=== PATIENT | male | born 1990 | race Hispanic/Latino ===

== ENCOUNTER 2017-03-21 08:08 | Emergency (ER) | payer SELFPAY ==
[2017-03-21] MEDS ORDERED: ONDANSETRON ODT 4 MG TAB ONE (09:55)
== END 2017-03-21 10:11 | disposition home or self-care (01) ==
LOC: EDH 08:08
DX: K52.9 Noninfective gastroenteritis and colitis, unspecified (principal); J06.9 Acute upper respiratory infection, unspecified; I10 Essential (primary) hypertension; Z79.899 Other long term (current) drug therapy
CPT/HCPCS: 87804

== ENCOUNTER 2017-03-22 16:00 | Emergency (ER) | payer SELFPAY ==
[2017-03-22] MEDS ORDERED: KETOROLAC TROMETHAMINE 60 MG/2 ML VIAL ONE (16:26)
== END 2017-03-22 16:53 | disposition home or self-care (01) ==
LOC: EDH 16:00
DX: J01.90 Acute sinusitis, unspecified (principal); R50.9 Fever, unspecified; I10 Essential (primary) hypertension; Z79.899 Other long term (current) drug therapy
CPT/HCPCS: 96372; 99283; J1885

== ENCOUNTER 2018-08-28 13:10 | Emergency (ER) | payer OTHER ==
[2018-08-28 14:25] LABS: BASOPHILS % (AUTO) 0.5 % (0.0-5.0); EOSINOPHILS % (AUTO) 2.3 % (0.0-8.0); HEMATOCRIT 43.1 % (42-54); LYMPHOCYTES % (AUTO) 31.5 % (21.0-51.0); MEAN CORPUSCULAR HGB CONC 33.6 g/dL (32.0-36.0); MEAN CORPUSCULAR VOLUME 86.5 fL (79-99); MONOCYTES % (AUTO) 9.7 % (3.0-13.0); NUCLEATED RED BLOOD CELLS 0.1 % (0.0-0.19); PLATELET COUNT (AUTO) 232 K/uL (130-400); RED BLOOD CELL COUNT(AUTO) 4.98 MIL/uL (4.50-6.20); RED CELL DISTRIBUTION WIDTH 13.8 % (11.0-15.5); WHITE BLOOD COUNT (AUTO) 8.4 K/uL (4.8-10.8)
[2018-08-28 14:31] LABS: APPEARANCE,URINE Cloudy (CLEAR); BILIRUBIN,URINE Negative (NEGATIVE); COLOR,URINE Yellow (YELLOW); GLUCOSE, URINE (UA) >=1000 mg/dL (NEGATIVE); KETONES,URINE Trace mg/dL (NEGATIVE); LEUKOCYTE ESTERASE ,URINE Negative (NEGATIVE); NITRATE,URINE Negative (NEGATIVE); OCCULT BLOOD,URINE Negative (NEGATIVE); PH,URINE 6.5 (5.0-8.0); PROTEIN,URINE Negative (NEGATIVE)
[2018-08-28 14:44] LABS: AMORPHOUS SEDIMENT,UR Moderate /LPF (None Seen); BACTERIA,URINE Few /HPF (None Seen); RBC,URINE 0-1 /HPF (0-1); SQUAMOUS EPITHELIAL CELL,UR Rare /HPF (0-2); WBC,URINE 0-1 /HPF (0-1)
[2018-08-28 14:47] LABS: CREATININE 0.7 mg/dL (0.5-1.5); POTASSIUM 3.7 mmol/L (3.5-5.1)
[2018-08-28 14:51] LABS: ALBUMIN 3.6 g/dL (3.5-5.0); BILIRUBIN,DIRECT 0.1 mg/dL (0.0-0.3); BILIRUBIN,TOTAL 0.6 mg/dL (0.2-1.0); TOTAL PROTEIN, SERUM 7.1 g/dL (6.0-8.3)
== END 2018-08-28 15:39 | disposition home or self-care (01) ==
LOC: EDH 13:10
DX: S39.011A Strain of muscle, fascia and tendon of abdomen, initial encounter (principal); X58.XXXA Exposure to other specified factors, initial encounter; Y93.89 Activity, other specified; Y92.89 Other specified places as the place of occurrence of the external cause; Y99.8 Other external cause status
CPT/HCPCS: 36415; 74176; 80048; 80076; 81001; 83690; 85025

== ENCOUNTER 2019-04-30 10:33 | Emergency (ER) | payer OTHER | END 2019-04-30 12:20 | disposition home or self-care (01) | LOC: EDH 10:33 | DX: J06.9 Acute upper respiratory infection, unspecified (principal) | CPT/HCPCS: 87804 ==

== ENCOUNTER 2020-04-30 22:26 | Emergency (ER) | payer OTHER ==
[2020-04-30] MEDS ORDERED: ACETAMINOPHEN EXTRA STRENGTH 500 MG TABLET ONE (23:03)
[2020-04-30] MEDS ORDERED: ONDANSETRON HCL 4 MG/2 ML VIAL ONE (23:06)
[2020-04-30 23:13] LABS: BASOPHILS % (AUTO) 0.3 % (0.0-5.0); EOSINOPHILS % (AUTO) 3.7 % (0.0-8.0); HEMATOCRIT 42.3 % (42-54); LYMPHOCYTES % (AUTO) 45.5 % (21.0-51.0); MEAN CORPUSCULAR HEMOGLOBIN 27.8 pg (27.0-33.0); MEAN CORPUSCULAR HGB CONC 32.6 g/dL (32.0-36.0); MEAN CORPUSCULAR VOLUME 85.1 fL (79-99); MONOCYTES % (AUTO) 8.8 % (3.0-13.0); NEUTROPHILS % (AUTO) 41.1 % (40.0-77.0); PLATELET COUNT (AUTO) 240 K/uL (130-400); RED BLOOD CELL COUNT(AUTO) 4.97 MIL/uL (4.50-6.20); RED CELL DISTRIBUTION WIDTH 12.8 % (11.0-15.5); WHITE BLOOD COUNT (AUTO) 7.3 K/uL (4.8-10.8)
[2020-04-30 23:14] LABS: APPEARANCE,URINE Clear (CLEAR); BILIRUBIN,URINE Negative (NEGATIVE); COLOR,URINE Yellow (YELLOW); GLUCOSE, URINE (UA) Negative (NEGATIVE); KETONES,URINE Negative (NEGATIVE); LEUKOCYTE ESTERASE ,URINE Trace (NEGATIVE); NITRATE,URINE Negative (NEGATIVE); OCCULT BLOOD,URINE Negative (NEGATIVE); PH,URINE 5.5 (5.0-8.0); PROTEIN,URINE Negative (NEGATIVE)
[2020-04-30 23:27] LABS: BACTERIA,URINE Rare /HPF (None Seen); RBC,URINE None Seen /HPF (0-1); SQUAMOUS EPITHELIAL CELL,UR 0-2 /HPF (0-2); WBC,URINE 0-1 /HPF (0-1)
[2020-04-30 23:51] LABS: ALBUMIN 3.6 g/dL (3.5-5.0); BILIRUBIN,TOTAL 0.6 mg/dL (0.2-1.0); CREATININE 0.7 mg/dL (0.5-1.5); POTASSIUM 3.8 mmol/L (3.5-5.1); TOTAL PROTEIN, SERUM 7.2 g/dL (6.0-8.3)
[2020-05-01] MEDS ORDERED: KETOROLAC TROMETHAMINE 30MG/ML ONE (00:16)
[2020-05-01] MEDS ORDERED: METOCLOPRAMIDE 10 MG/2 ML VIAL ONE (00:16)
[2020-05-01] MEDS ORDERED: ORPHENADRINE CITRATE 30 MG/ML ML ONE (00:16)
== END 2020-05-01 00:52 | disposition home or self-care (01) ==
LOC: EDH 22:26
DX: E86.0 Dehydration (principal); R51.9 Headache, unspecified; M62.830 Muscle spasm of back
CPT/HCPCS: 36415; 80053; 81001; 83690; 85025; 96361; 96374; 96375; 99284; J1885; J2360; J2405; J2765

== ENCOUNTER 2020-09-26 19:28 | Emergency (ER) | payer OTHER ==
[~2020-09-26] VITALS: Ht 177.8 cm; Wt 136.1 kg
[2020-09-26 22:04] VITALS: BP 137/80
== END 2020-09-26 22:11 | disposition home or self-care (01) ==
LOC: EDH 19:28
DX: J06.9 Acute upper respiratory infection, unspecified (principal); Z20.822 Contact with and (suspected) exposure to COVID-19; E11.9 Type 2 diabetes mellitus without complications
CPT/HCPCS: 71045; 87635; 87804 ×2; 99284; C9803

== ENCOUNTER 2021-01-28 21:54 | Emergency (ER) | payer BC, OTHER ==
[~2021-01-28] VITALS: Ht 177.8 cm; Wt 136.1 kg
[2021-01-28] MEDS ORDERED: 0.9%NACL 1000ML 1,000 ML IV ONE (23:00)
[2021-01-28] MEDS ORDERED: CYCLOBENZAPRINE HCL 10 MG TABLET PO ONE (23:00)
[2021-01-28] MEDS ORDERED: KETOROLAC 30MG VIAL (30MG/ML) IV ONE (23:00)
[2021-01-28] MEDS ORDERED: PROMETHAZINE HCL 25 MG/ML 1ML AMPULE IM ONE (23:00)
[2021-01-28 23:09] LABS: BASOPHILS % (AUTO) 0.4 % (0.0-5.0); EOSINOPHILS % (AUTO) 4.1 % (0.0-8.0); HEMATOCRIT 44.8 % (42-54); MEAN CORPUSCULAR HEMOGLOBIN 27.9 pg (27.0-33.0); MEAN CORPUSCULAR VOLUME 84.4 fL (79-99); MONOCYTES % (AUTO) 8.5 % (3.0-13.0); NEUTROPHILS % (AUTO) 46.7 % (40.0-77.0); PLATELET COUNT (AUTO) 256 K/uL (130-400); RED BLOOD CELL COUNT(AUTO) 5.31 MIL/uL (4.50-6.20); RED CELL DISTRIBUTION WIDTH 12.5 % (11.0-15.5); WHITE BLOOD COUNT (AUTO) 8.9 K/uL (4.8-10.8)
[2021-01-28 23:17] LABS: POTASSIUM 3.8 mmol/L (3.5-5.1)
[2021-01-28 23:22] LABS: BILIRUBIN,TOTAL 0.8 mg/dL (0.2-1.0); TOTAL PROTEIN, SERUM 7.6 g/dL (6.0-8.3)
[2021-01-28] MEDS ORDERED: CYCL10TA16 PO (23:31)
[2021-01-28] MEDS ORDERED: NAPR-1180 PO (23:31)
[2021-01-28 23:37] LABS: CREATININE 0.9 mg/dL (0.5-1.5)
[2021-01-29 00:07] VITALS: BP 118/58
== END 2021-01-29 00:48 | disposition home or self-care (01) ==
LOC: EDH 21:54
DX: G43.909 Migraine, unspecified, not intractable, without status migrainosus (principal); E11.9 Type 2 diabetes mellitus without complications; E78.00 Pure hypercholesterolemia, unspecified; E66.9 Obesity, unspecified; Z68.41 Body mass index [BMI] 40.0-44.9, adult; Z79.1 Long term (current) use of non-steroidal anti-inflammatories (NSAID)
CPT/HCPCS: 36415; 70450; 80053; 85025; 96361; 96372; 96374; 99284; J1885; J2550; J7030

== ENCOUNTER 2021-06-12 12:49 | Emergency (ER) | payer BC, OTHER ==
[~2021-06-12] VITALS: Ht 175.3 cm; Wt 139.7 kg
[~2021-06-12 12:49] MED LIST: CYCL10TA16 PO; NAPR-1180 PO
[2021-06-12 13:09] LABS: BASOPHILS % (AUTO) 0.3 % (0.0-5.0); EOSINOPHILS % (AUTO) 3.6 % (0.0-8.0); HEMATOCRIT 43.2 % (42-54); LYMPHOCYTES % (AUTO) 31.9 % (21.0-51.0); MEAN CORPUSCULAR HEMOGLOBIN 27.3 pg (27.0-33.0); MEAN CORPUSCULAR HGB CONC 32.6 g/dL (32.0-36.0); MEAN CORPUSCULAR VOLUME 83.6 fL (79-99); MONOCYTES % (AUTO) 7.2 % (3.0-13.0); NEUTROPHILS % (AUTO) 56.6 % (40.0-77.0); PLATELET COUNT (AUTO) 246 K/uL (130-400); RED BLOOD CELL COUNT(AUTO) 5.17 MIL/uL (4.50-6.20); RED CELL DISTRIBUTION WIDTH 12.6 % (11.0-15.5); WHITE BLOOD COUNT (AUTO) 7.3 K/uL (4.8-10.8)
[2021-06-12 13:21] LABS: CREATININE 0.8 mg/dL (0.5-1.5); POTASSIUM 4.3 mmol/L (3.5-5.1)
[2021-06-12 13:26] LABS: APPEARANCE,URINE Clear (CLEAR); BILIRUBIN,URINE Negative (NEGATIVE); COLOR,URINE Yellow (YELLOW); GLUCOSE, URINE (UA) >=1000 mg/dL (NEGATIVE); KETONES,URINE Trace mg/dL (NEGATIVE); LEUKOCYTE ESTERASE ,URINE Negative (NEGATIVE); NITRATE,URINE Negative (NEGATIVE); OCCULT BLOOD,URINE Negative (NEGATIVE); PH,URINE 5.5 (5.0-8.0); PROTEIN,URINE Negative (NEGATIVE)
[2021-06-12 13:26] LABS: ALBUMIN 3.7 g/dL (3.5-5.0); BILIRUBIN,TOTAL 0.9 mg/dL (0.2-1.0); TOTAL PROTEIN, SERUM 7.1 g/dL (6.0-8.3)
[2021-06-12 13:32] LABS: AMPHET/METH SCREEN,URINE NEGATIVE (NEGATIVE); BARBITURATE SCREEN, URINE NEGATIVE (NEGATIVE); BENZODIAZEPINES SCREEN,URINE NEGATIVE (NEGATIVE); CANNABINOID SCREEN,URINE NEGATIVE (NEGATIVE); COCAINE SCREEN,URINE NEGATIVE (NEGATIVE); OPIATE SCREEN,URINE NEGATIVE (NEGATIVE); PHENCYCLIDINE SCREEN,URINE NEGATIVE (NEGATIVE)
[2021-06-12 13:44] LABS: BACTERIA,URINE Rare /HPF (None Seen); RBC,URINE 0-1 /HPF (0-1); WBC,URINE 0-1 /HPF (0-1)
[2021-06-12] MEDS ORDERED: LORAZEPAM 2 MG/ML 1 ML VIAL IVP ONE (14:00)
[2021-06-12 15:51] VITALS: BP 114/69
== END 2021-06-12 15:58 | disposition home or self-care (01) ==
LOC: EDH 12:49
DX: R07.89 Other chest pain (principal); R09.81 Nasal congestion; R05.9 Cough, unspecified; E11.9 Type 2 diabetes mellitus without complications; I10 Essential (primary) hypertension; G43.909 Migraine, unspecified, not intractable, without status migrainosus; E66.9 Obesity, unspecified; Z68.41 Body mass index [BMI] 40.0-44.9, adult; Z79.1 Long term (current) use of non-steroidal anti-inflammatories (NSAID)
CPT/HCPCS: 36415; 71045; 80053; 80305; 81001; 84484 ×2; 85025; 93005; 96374; 99285; J2060

== ENCOUNTER 2021-11-19 21:30 | Emergency (ER) | payer OTHER ==
[~2021-11-19] VITALS: Ht 177.8 cm; Wt 134.7 kg
[2021-11-19 22:06] LABS: BASOPHILS % (AUTO) 0.3 % (0.0-5.0); EOSINOPHILS % (AUTO) 0.7 % (0.0-8.0); HEMATOCRIT 43.4 % (42-54); LYMPHOCYTES % (AUTO) 27.7 % (21.0-51.0); MEAN CORPUSCULAR HEMOGLOBIN 28.3 pg (27.0-33.0); MEAN CORPUSCULAR HGB CONC 33.9 g/dL (32.0-36.0); MEAN CORPUSCULAR VOLUME 83.6 fL (79-99); MONOCYTES % (AUTO) 10.3 % (3.0-13.0); NEUTROPHILS % (AUTO) 60.1 % (40.0-77.0); PLATELET COUNT (AUTO) 230 K/uL (130-400); RED BLOOD CELL COUNT(AUTO) 5.19 MIL/uL (4.50-6.20); WHITE BLOOD COUNT (AUTO) 10.7 K/uL (4.8-10.8)
[2021-11-19 22:16] LABS: POTASSIUM 3.8 mmol/L (3.5-5.1)
[2021-11-19 22:21] LABS: ALBUMIN 3.3 g/dL (3.5-5.0); TOTAL PROTEIN, SERUM 6.5 g/dL (6.0-8.3)
[2021-11-19] MEDS: KETOROLAC 15MG/ML VIAL (15MG/ML) ONE (23:28)
[2021-11-19] MEDS ORDERED: OSEL75 PO (23:39)
[2021-11-19] MEDS ORDERED: IBUP-2070 PO (23:39)
[2021-11-19] MEDS ORDERED: D-ME118S47 PO (23:39)
[2021-11-19] MEDS: KETOROLAC 15MG/ML VIAL (15MG/ML) IV ONE (23:41)
[2021-11-19 23:43] VITALS: BP 121/65
== END 2021-11-19 23:55 | disposition home or self-care (01) ==
LOC: EDH 21:30
DX: J10.1 Influenza due to other identified influenza virus with other respiratory manifestations (principal); M94.0 Chondrocostal junction syndrome [Tietze]; E11.9 Type 2 diabetes mellitus without complications; I10 Essential (primary) hypertension; G43.909 Migraine, unspecified, not intractable, without status migrainosus; Z79.899 Other long term (current) drug therapy
CPT/HCPCS: 99285; 96374; 71045; 84484; 80053; 85025; 87804 ×2; 36415; 93005; J1885

== ENCOUNTER 2022-03-24 23:04 | Emergency (ER) | payer BC, OTHER ==
[~2022-03-24] VITALS: Ht 177.8 cm; Wt 138.8 kg
[~2022-03-24 23:04] MED LIST changes: +D-ME118S47 PO; +IBUP-2070 PO; +OSEL75 PO
[2022-03-25 00:08] LABS: BASOPHILS % (AUTO) 0.5 % (0.0-5.0); EOSINOPHILS % (AUTO) 2.3 % (0.0-8.0); HEMATOCRIT 40.9 % (42-54); LYMPHOCYTES % (AUTO) 36.3 % (21.0-51.0); MEAN CORPUSCULAR HEMOGLOBIN 28.1 pg (27.0-33.0); MEAN CORPUSCULAR HGB CONC 33.5 g/dL (32.0-36.0); MONOCYTES % (AUTO) 8.7 % (3.0-13.0); NEUTROPHILS % (AUTO) 51.7 % (40.0-77.0); PLATELET COUNT (AUTO) 276 K/uL (130-400); RED BLOOD CELL COUNT(AUTO) 4.87 MIL/uL (4.50-6.20); RED CELL DISTRIBUTION WIDTH 12.2 % (11.0-15.5); WHITE BLOOD COUNT (AUTO) 9.7 K/uL (4.8-10.8)
[2022-03-25 00:09] LABS: CREATININE 0.7 mg/dL (0.5-1.5); POTASSIUM 3.6 mmol/L (3.5-5.1)
[2022-03-25 00:15] LABS: ALBUMIN 3.6 g/dL (3.5-5.0); TOTAL PROTEIN, SERUM 7.1 g/dL (6.0-8.3)
[2022-03-25 00:18] LABS: APPEARANCE,URINE CLEAR (CLEAR); BILIRUBIN,URINE NEGATIVE (NEGATIVE); COLOR,URINE LIGHT-YELLOW (YELLOW); GLUCOSE, URINE (UA) NEGATIVE (NEGATIVE); KETONES,URINE NEGATIVE (NEGATIVE); LEUKOCYTE ESTERASE ,URINE NEGATIVE Leu/uL (NEGATIVE); NITRATE,URINE NEGATIVE (NEGATIVE); OCCULT BLOOD,URINE NEGATIVE (NEGATIVE); PROTEIN,URINE NEGATIVE (NEGATIVE); UROBILINOGEN,URINE 0.2 mg/dL (0.2-1.0)
[2022-03-25] MEDS ORDERED: MAG/ALUM/SIMETH 30 ML UDCUP PO ONE (00:30)
[2022-03-25] MEDS ORDERED: LIDOCAINE HCL 2% VISCOUS 15 ML UDCUP PO ONE (00:30)
[2022-03-25 00:31] LABS: MUCUS,URINE RARE LPF (None Seen); RBC,URINE 0-1 /HPF (0-1); SQUAMOUS EPITHELIAL CELL,UR FEW /HPF (0-2); WBC,URINE 0-1 /HPF (0-1)
[2022-03-25 00:42] LABS: INR 0.93 (0.85-1.15)
[2022-03-25] MEDS ORDERED: IOHEXOL 350 MG/ML 100ML INFUS..BTL IV ONE (03:37)
[2022-03-25] MEDS ORDERED: IBUP-1493 PO (04:28)
[2022-03-25] MEDS ORDERED: OMEP40CA21 PO (04:28)
[2022-03-25 04:45] VITALS: BP 125/55
== END 2022-03-25 05:18 | disposition home or self-care (01) ==
LOC: EDH 23:04
DX: R10.12 Left upper quadrant pain (principal); E11.9 Type 2 diabetes mellitus without complications; E66.9 Obesity, unspecified; I10 Essential (primary) hypertension; G43.909 Migraine, unspecified, not intractable, without status migrainosus; Z79.899 Other long term (current) drug therapy
CPT/HCPCS: 99284; 80053; 83690; 85025; 85610; 85730; 81001; 36415; 81003; 74177; 76705; Q9967

== ENCOUNTER 2022-09-19 00:10 | Emergency (ER) | payer BC ==
[~2022-09-19] VITALS: Ht 177.8 cm; Wt 136.1 kg
[~2022-09-19 00:10] MED LIST changes: -CYCL10TA16 PO; -D-ME118S47 PO; +IBUP-1493 PO; -IBUP-2070 PO; -NAPR-1180 PO; +OMEP40CA21 PO; -OSEL75 PO
[2022-09-19 02:16] LABS: BASOPHILS # (AUTO) 0.06 K/uL (0.00-0.20); BASOPHILS % (AUTO) 0.7 % (0.0-5.0); EOSINOPHILS # (AUTO) 0.35 K/uL (0.00-0.70); EOSINOPHILS % (AUTO) 4.1 % (0.0-8.0); HEMATOCRIT 40.7 % (42-54); IMMATURE GRANULOCYTE ABSOLUTE 0.04 K/uL (0-1); LYMPHOCYTES # (AUTO) 2.9 K/uL (1.0-4.8); LYMPHOCYTES % (AUTO) 34.5 % (21.0-51.0); MEAN CORPUSCULAR HEMOGLOBIN 27.7 pg (27.0-33.0); MEAN CORPUSCULAR HGB CONC 34.2 g/dL (32.0-36.0); MEAN CORPUSCULAR VOLUME 81.2 fL (79-99); MONOCYTES # (AUTO) 0.9 K/uL (0.1-1.0); MONOCYTES % (AUTO) 10.1 % (3.0-13.0); NEUTROPHILS # (AUTO) 4.3 K/uL (1.8-7.7); NEUTROPHILS % (AUTO) 50.1 % (40.0-77.0); PLATELET COUNT (AUTO) 298 K/uL (130-400); RED BLOOD CELL COUNT(AUTO) 5.01 MIL/uL (4.50-6.20); RED CELL DISTRIBUTION WIDTH 12.4 % (11.0-15.5); WHITE BLOOD COUNT (AUTO) 8.5 K/uL (4.8-10.8)
[2022-09-19 02:17] LABS: APPEARANCE,URINE CLEAR (CLEAR); BILIRUBIN,URINE NEGATIVE (NEGATIVE); COLOR,URINE YELLOW (YELLOW); GLUCOSE, URINE (UA) >=1000 mg/dL (NEGATIVE); KETONES,URINE 5 mg/dL (NEGATIVE); LEUKOCYTE ESTERASE ,URINE 25 Leu/uL (NEGATIVE); NITRATE,URINE NEGATIVE (NEGATIVE); OCCULT BLOOD,URINE NEGATIVE (NEGATIVE); PROTEIN,URINE 10 mg/dL (NEGATIVE)
[2022-09-19 02:19] LABS: ADD UA MICROSCOPIC YES
[2022-09-19 02:21] LABS: CREATININE 0.8 mg/dL (0.5-1.5)
[2022-09-19 02:25] LABS: ALBUMIN 3.2 g/dL (3.5-5.0); BILIRUBIN,TOTAL 0.5 mg/dL (0.2-1.0); TOTAL PROTEIN, SERUM 7.2 g/dL (6.0-8.3)
[2022-09-19 02:28] LABS: RBC,URINE None Seen /HPF (0-1)
[2022-09-19 02:29] LABS: BACTERIA,URINE Few /HPF (None Seen)
[2022-09-19] MEDS ORDERED: HYDROCODONE/ACETAMINOPHEN 5/325 MG TAB PO ONE (02:30)
[2022-09-19] MEDS ORDERED: KETOROLAC 15MG/ML VIAL (15MG/ML) IV ONE (02:30)
[2022-09-19] MEDS ORDERED: FAMOTIDINE 20MG VIAL IV ONE (02:30)
[2022-09-19] MEDS ORDERED: ONDANSETRON 4MG INJ IVP ONE (02:30)
[2022-09-19] MEDS ORDERED: CEFTRIAXONE 2GM VIAL IVPB ONE (03:30)
[2022-09-19] MEDS ORDERED: CEPH500B PO (03:32)
[2022-09-19 04:32] VITALS: BP 136/82; PULSE 80; RESP 18; O2SAT 99
== END 2022-09-19 04:33 | disposition home or self-care (01) ==
LOC: EDH 00:10
DX: N39.0 Urinary tract infection, site not specified (principal); N45.1 Epididymitis; N43.3 Hydrocele, unspecified; E66.9 Obesity, unspecified; I10 Essential (primary) hypertension; E11.9 Type 2 diabetes mellitus without complications; G43.909 Migraine, unspecified, not intractable, without status migrainosus; Z68.41 Body mass index [BMI] 40.0-44.9, adult
CPT/HCPCS: 99284; 96365; 96375; 80053; 85025; 81001; 36415; 76870; J3490; J0696; J2405; J1885

== ENCOUNTER 2023-08-02 18:00 | Emergency (ER) | payer BC ==
[~2023-08-02] VITALS: Ht 177.8 cm; Wt 136.1 kg
[~2023-08-02 18:00] MED LIST changes: +CEPH500B PO
[2023-08-02 18:02] VITALS: BP 130/78; PULSE 90; RESP 18
[2023-08-02 18:27] LABS: BASOPHILS # (AUTO) 0.04 K/uL (0.00-0.20); BASOPHILS % (AUTO) 0.5 % (0.0-5.0); EOSINOPHILS # (AUTO) 0.12 K/uL (0.00-0.70); EOSINOPHILS % (AUTO) 1.6 % (0.0-8.0); HEMATOCRIT 41.7 % (42-54); IMMATURE GRANULOCYTE ABSOLUTE 0.04 K/uL (0-1); LYMPHOCYTES # (AUTO) 2.7 K/uL (1.0-4.8); LYMPHOCYTES % (AUTO) 35.8 % (21.0-51.0); MEAN CORPUSCULAR HEMOGLOBIN 28.5 pg (27.0-33.0); MEAN CORPUSCULAR HGB CONC 34.5 g/dL (32.0-36.0); MEAN CORPUSCULAR VOLUME 82.6 fL (79-99); MONOCYTES # (AUTO) 0.5 K/uL (0.1-1.0); MONOCYTES % (AUTO) 6.9 % (3.0-13.0); NEUTROPHILS # (AUTO) 4.1 K/uL (1.8-7.7); NEUTROPHILS % (AUTO) 54.7 % (40.0-77.0); PLATELET COUNT (AUTO) 254 K/uL (130-400); RED BLOOD CELL COUNT(AUTO) 5.05 MIL/uL (4.50-6.20); RED CELL DISTRIBUTION WIDTH 12.5 % (11.0-15.5); WHITE BLOOD COUNT (AUTO) 7.6 K/uL (4.8-10.8)
[2023-08-02 18:37] LABS: CREATININE 0.8 mg/dL (0.5-1.3); POTASSIUM 3.9 mmol/L (3.5-5.1)
[2023-08-02 18:47] LABS: ALBUMIN 3.8 g/dL (3.5-5.0); BILIRUBIN,TOTAL 0.9 mg/dL (0.2-1.0); TOTAL PROTEIN, SERUM 7.3 g/dL (6.0-8.3)
[2023-08-02 18:53] LABS: ADD UA MICROSCOPIC YES; APPEARANCE,URINE CLEAR (CLEAR); BILIRUBIN,URINE NEGATIVE (NEGATIVE); COLOR,URINE YELLOW (YELLOW); GLUCOSE, URINE (UA) 250 mg/dL (NEGATIVE); KETONES,URINE NEGATIVE (NEGATIVE); LEUKOCYTE ESTERASE ,URINE NEGATIVE Leu/uL (NEGATIVE); NITRATE,URINE NEGATIVE (NEGATIVE); OCCULT BLOOD,URINE NEGATIVE (NEGATIVE); PROTEIN,URINE NEGATIVE (NEGATIVE)
[2023-08-02 19:24] LABS: BACTERIA,URINE Rare /HPF (None Seen); RBC,URINE 0-1 /HPF (0-1); SQUAMOUS EPITHELIAL CELL,UR Rare /HPF (0-2); WBC,URINE 0-1 /HPF (0-1)
== END 2023-08-02 20:30 | disposition home or self-care (01) ==
LOC: EDH 18:00
DX: R10.9 Unspecified abdominal pain (principal); E11.9 Type 2 diabetes mellitus without complications; I10 Essential (primary) hypertension; E66.9 Obesity, unspecified; G43.909 Migraine, unspecified, not intractable, without status migrainosus; Z68.41 Body mass index [BMI] 40.0-44.9, adult; Z79.899 Other long term (current) drug therapy
CPT/HCPCS: 36415; 71045; 80053; 81001; 84484; 85025; 93005

== ENCOUNTER 2023-09-08 19:39 | Emergency (ER) | payer BC ==
[~2023-09-08] VITALS: Ht 177.8 cm; Wt 135.2 kg
[2023-09-08] MEDS: DiphenhydrAMINE HCL 50 MG/ML VIAL IV ONE (20:13)
[2023-09-08] MEDS: KETOROLAC 15MG/ML VIAL (15MG/ML) IV ONE (20:13)
[2023-09-08] MEDS: 0.9%NACL 1000ML 1,000 ML IV ONE (20:14)
[2023-09-08] MEDS: PROCHLORPERAZINE 10MG/2ML INJ IV ONE (20:14)
[2023-09-08 20:48] LABS: BASOPHILS # (AUTO) 0.04 K/uL (0.00-0.20); BASOPHILS % (AUTO) 0.5 % (0.0-5.0); EOSINOPHILS # (AUTO) 0.29 K/uL (0.00-0.70); EOSINOPHILS % (AUTO) 3.4 % (0.0-8.0); HEMATOCRIT 41.9 % (42-54); IMMATURE GRANULOCYTE ABSOLUTE 0.03 K/uL (0-1); LYMPHOCYTES # (AUTO) 2.6 K/uL (1.0-4.8); LYMPHOCYTES % (AUTO) 30.2 % (21.0-51.0); MEAN CORPUSCULAR HEMOGLOBIN 28.4 pg (27.0-33.0); MEAN CORPUSCULAR HGB CONC 34.1 g/dL (32.0-36.0); MEAN CORPUSCULAR VOLUME 83.3 fL (79-99); MONOCYTES # (AUTO) 0.7 K/uL (0.1-1.0); MONOCYTES % (AUTO) 8.3 % (3.0-13.0); NEUTROPHILS # (AUTO) 4.9 K/uL (1.8-7.7); NEUTROPHILS % (AUTO) 57.3 % (40.0-77.0); PLATELET COUNT (AUTO) 261 K/uL (130-400); RED BLOOD CELL COUNT(AUTO) 5.03 MIL/uL (4.50-6.20); RED CELL DISTRIBUTION WIDTH 12.9 % (11.0-15.5); WHITE BLOOD COUNT (AUTO) 8.6 K/uL (4.8-10.8)
[2023-09-08 21:06] LABS: CREATININE 0.9 mg/dL (0.5-1.3); POTASSIUM 4.2 mmol/L (3.5-5.1)
[2023-09-08 21:09] LABS: INR <= 0.93 (0.85-1.15)
[2023-09-08 21:10] LABS: PARTIAL THROMBOPLASTIN TIME 26.2 SEC (26.3-35.5)
[2023-09-08 21:15] LABS: ALBUMIN 3.4 g/dL (3.5-5.0); BILIRUBIN,TOTAL 0.9 mg/dL (0.2-1.0); TOTAL PROTEIN, SERUM 6.8 g/dL (6.0-8.3)
[2023-09-08 22:00] VITALS: BP 127/57; PULSE 88; RESP 16; O2SAT 99
== END 2023-09-08 22:19 | disposition home or self-care (01) ==
LOC: EDH 19:39
DX: G43.909 Migraine, unspecified, not intractable, without status migrainosus (principal); M79.602 Pain in left arm; E11.9 Type 2 diabetes mellitus without complications; E66.01 Morbid (severe) obesity due to excess calories; I10 Essential (primary) hypertension; Z79.899 Other long term (current) drug therapy
CPT/HCPCS: 99284; 96374; 70450; 96375; 96361; 84484; 80053; 85025; 85610; 85730; 82948; 36415; 93005; J1200; J7030; J0780; J1885

== ENCOUNTER 2023-12-01 23:11 | Emergency (ER) | payer BC ==
[~2023-12-01] VITALS: Ht 177.8 cm; Wt 136.1 kg
[2023-12-01 23:40] LABS: RAPID GROUP A STREP negative (NEGATIVE)
[2023-12-01 23:45] LABS: SARS-CoV-2, RNA, NAAT NEGATIVE SARS CoV-2 (NEGATIVE)
[2023-12-01 23:51] LABS: BASOPHILS # (AUTO) 0.05 K/uL (0.00-0.20); BASOPHILS % (AUTO) 0.6 % (0.0-5.0); EOSINOPHILS # (AUTO) 0.25 K/uL (0.00-0.70); EOSINOPHILS % (AUTO) 3.1 % (0.0-8.0); HEMATOCRIT 40.2 % (42-54); IMMATURE GRANULOCYTE ABSOLUTE 0.04 K/uL (0-1); LYMPHOCYTES # (AUTO) 3.2 K/uL (1.0-4.8); LYMPHOCYTES % (AUTO) 40.3 % (21.0-51.0); MEAN CORPUSCULAR HEMOGLOBIN 28.5 pg (27.0-33.0); MEAN CORPUSCULAR HGB CONC 33.8 g/dL (32.0-36.0); MEAN CORPUSCULAR VOLUME 84.3 fL (79-99); MONOCYTES # (AUTO) 0.7 K/uL (0.1-1.0); MONOCYTES % (AUTO) 8.7 % (3.0-13.0); NEUTROPHILS # (AUTO) 3.8 K/uL (1.8-7.7); NEUTROPHILS % (AUTO) 46.8 % (40.0-77.0); PLATELET COUNT (AUTO) 244 K/uL (130-400); RED BLOOD CELL COUNT(AUTO) 4.77 MIL/uL (4.50-6.20); RED CELL DISTRIBUTION WIDTH 12.3 % (11.0-15.5)
[2023-12-01 23:52] LABS: INFLUENZA TYPE A Negative For Type A (NEGATIVE); INFLUENZA TYPE B Negative For Type B (NEGATIVE)
[2023-12-01 23:53] LABS: APPEARANCE,URINE CLEAR (CLEAR); BILIRUBIN,URINE NEGATIVE (NEGATIVE); COLOR,URINE LIGHT-YELLOW (YELLOW); GLUCOSE, URINE (UA) >=1000 mg/dL (NEGATIVE); KETONES,URINE 5 mg/dL (NEGATIVE); LEUKOCYTE ESTERASE ,URINE NEGATIVE Leu/uL (NEGATIVE); MUCUS,URINE RARE LPF (None Seen); NITRATE,URINE NEGATIVE (NEGATIVE); OCCULT BLOOD,URINE NEGATIVE (NEGATIVE); PROTEIN,URINE NEGATIVE (NEGATIVE); SQUAMOUS EPITHELIAL CELL,UR RARE /HPF (0-2); UROBILINOGEN,URINE 0.2 mg/dL (0.2-1.0)
[2023-12-01] MEDS: ondanSETRON 4MG INJ IVP ONE (23:57)
[2023-12-01] MEDS: 0.9%NACL 1000ML 1,000 ML IV ONE (23:57)
[2023-12-01] MEDS: acetaMINOPHEN 325 MG TAB PO ONE (23:57)
[2023-12-02 00:01] LABS: CREATININE 0.9 mg/dL (0.5-1.3); POTASSIUM 3.9 mmol/L (3.5-5.1)
[2023-12-02 00:05] LABS: ALBUMIN 3.3 g/dL (3.5-5.0); BILIRUBIN,DIRECT 0.2 mg/dL (0.0-0.3); BILIRUBIN,TOTAL 0.8 mg/dL (0.2-1.0); TOTAL PROTEIN, SERUM 6.6 g/dL (6.0-8.3)
[2023-12-02] MEDS ORDERED: ONDA-243 PO (02:05)
[2023-12-02 02:21] VITALS: BP 127/81; PULSE 76; RESP 19; TEMP 98.6; O2SAT 97
== END 2023-12-02 02:33 | disposition home or self-care (01) ==
LOC: EDH 23:11
DX: G43.909 Migraine, unspecified, not intractable, without status migrainosus (principal); E11.65 Type 2 diabetes mellitus with hyperglycemia; R07.81 Pleurodynia; R11.2 Nausea with vomiting, unspecified; E66.9 Obesity, unspecified; I10 Essential (primary) hypertension; Z20.822 Contact with and (suspected) exposure to COVID-19; Z79.1 Long term (current) use of non-steroidal anti-inflammatories (NSAID); Z79.899 Other long term (current) drug therapy
CPT/HCPCS: 99284; 96374; 70450; 87635; 96361; 80076; 80048; 83690; 85025; 87880; 87804 ×2; 81001; 36415; 71100; J7030; J2405

== ENCOUNTER 2023-12-23 12:26 | Emergency (ER) | payer BC ==
[~2023-12-23] VITALS: Ht 177.8 cm; Wt 134.7 kg
[~2023-12-23 12:26] MED LIST changes: +ONDA-243 PO
[2023-12-23 12:49] VITALS: TEMP 98.1
--- NOTE | 2023-12-23 13:06 | ERN ---
ED Note History of Present Illness Stated Complaint: EPIGASTRIC PAIN, NAUSEA, VOMITING, DIARRHEA Chief Complaint: Nausea,Vomiting,Diarrhea Time Seen by MD: 12:29 Dictation: 33-year-old male presents to the ED for evaluation of epigastric pain onset 3 days ago. Patient reports nausea, vomiting, shortness a breath, but denies any other associated symptoms at this time. Patient states he had an episode of yellow/greenish emesis. Allergies: Coded Allergies: No Known Allergies (Unverified Allergy, Unknown, 08/28/18) Home Meds Active Scripts Ondansetron (Ondansetron Odt) 4 Mg Tab.rapdis, 1 TAB PO Q6HPRN PRN for nausea/vomiting for 4 Days, #16 TAB 0 Refills Prov:ADI CHURCH MD 12/02/23 Cephalexin Monohydrate (Keflex) 500 Mg Cap, 500 MG PO QID for 10 Days, #40 CAP 0 Refills Prov:FABIEN WINCHESTER Sr., MD 09/19/22 Omeprazole (Omeprazole) 40 Mg Capsule.dr, 40 MG PO DAILY, #30 CAP Prov:PREM QUINTEROS MD 03/25/22 Ibuprofen (Motrin/Advil) 800 Mg Tab, 800 MG PO TID, #30 TAB Prov:PREM QUINTEROS MD 03/25/22 Past Medical History Past Medical History: Diabetes-Type II, Hypertension Additional Past Medical Hx: Obesity, migraine headaches Surgical History: None Social History: Negative, Lives with family Review of System Dictation Constitutional: Negative for fever,chills, and weight loss Eyes: Negative for injury, pain,redness, and discharge ENT: Negative for injury,pain or swelling Cardiovascular: Negative for chest pain, palpitations, and edema Respiratory: Positive for shortness of breath, negative for cough, and wheezing, Abdomen/GI: Positive for epigastric pain, nausea, vomiting negative for diarrhea, and constipation Back: Negative for injury and pain : Negative for injury, bleeding and discharge MS/Extremity: Negative for injury and deformity Skin: Negative for rash, and discoloration Neuro: Negative for headache, weakness, numbness, tingling, and seizure Psych: Negative for suicide ideation, homicidal ideation, and hallucinations Initial Vital Sign VS Vital Signs Date Time Temp Pulse Resp B/P (MAP) Pulse Ox O2 Delivery O2 Flow Rate FiO2 12/23/23 12:27 98.6 92 18 118/73 98 Room Air 0 12/23/23 12:49 21 Physical Exam Dictation General: awake, alert, NAD Head/Face: Normocephalic, atraumatic Eyes: PERRL, EOMI, vision at baseline ENT: oral cavity clear, TMs clear, no signs of infection Neck: Trachea midline, supple, no nuchal rigidity Cardiovascular: RRR, normal S1/S2, No MRGs, no JVD Respiratory: CTAB, no respiratory distress, No rales or wheezes Abdomen: Soft, mild epigastric tenderness, non-distended, normal bowel sounds, no guarding or rebound. Skin: Warm, dry, normal turgor, no rash MS/Extremity: Pulses equal, no cyanosis, neurovascular intact, FROM Neuro: COAx4, GCS 15, strength 5/5, CN 2-12 intact, normal cerebellar exam, normal gait, Psych: Normal behavior, mood, and affect normal Results (Laboratory/Radiology) Laboratory/Radiology Laboratory Tests Test 12/23/23 13:24 White Blood Count 8.0 K/uL (4.8-10.8) Red Blood Count 5.23 MIL/uL (4.50-6.20) Hemoglobin 14.6 g/dL (14.0-18.0) Hematocrit 43.2 % (42-54) Mean Corpuscular Volume 82.6 fL (79-99) Mean Corpuscular Hemoglobin 27.9 pg (27.0-33.0) Mean Corpuscular Hemoglobin Concent 33.8 g/dL (32.0-36.0) Red Cell Distribution Width 12.2 % (11.0-15.5) Platelet Count 189 K/uL (130-400) Mean Platelet Volume 11.5 fL (7.5-10.5) H Immature Granulocyte % (Auto) 0.5 % (0-1) Neutrophils (%) (Auto) 64.2 % (40.0-77.0) Lymphocytes (%) (Auto) 25.4 % (21.0-51.0) Monocytes (%) (Auto) 7.4 % (3.0-13.0) Eosinophils (%) (Auto) 2.1 % (0.0-8.0) Basophils (%) (Auto) 0.4 % (0.0-5.0) Neutrophils # (Auto) 5.1 K/uL (1.8-7.7) Lymphocytes # (Auto) 2.0 K/uL (1.0-4.8) Monocytes # (Auto) 0.6 K/uL (0.1-1.0) Eosinophils # (Auto) 0.17 K/uL (0.00-0.70) Basophils # (Auto) 0.03 K/uL (0.00-0.20) Absolute Immature Granulocyte (auto 0.04 K/uL (0-1) Nucleated Red Blood Cells 0.0 % (0.0-0.19) Sodium Level 133 mmol/L (136-145) L Potassium Level 4.3 mmol/L (3.5-5.1) Chloride Level 99 mmol/L (101-111) L Carbon Dioxide Level 24 mmol/L (21-32) Blood Urea Nitrogen 11 mg/dL (7-18) Creatinine 0.8 mg/dL (0.5-1.3) Glomerular Filtration Rate Calc 118 mL/min (>90) Random Glucose 226 mg/dL (70-105) H Total Calcium 8.3 mg/dL (8.5-10.1) L Total Bilirubin 1.3 mg/dL (0.2-1.0) H Direct Bilirubin 0.1 mg/dL (0.0-0.3) Aspartate Amino Transf (AST/SGOT) 48 U/L (10-37) H Alanine Aminotransferase (ALT/SGPT) 72 U/L (12-78) Alkaline Phosphatase 83 U/L (50-136) Troponin I High Sensitivity 28 ng/L (4-75) Total Protein 6.4 g/dL (6.0-8.3) Albumin 3.2 g/dL (3.5-5.0) L Lipase 22 U/L (16-77) ED Course ED Course Orders Procedure Category Date Status Time Basic Metabolic Panel LAB 12/23/23 Complete 13:00 Cbc With Differential LAB 12/23/23 Complete 13:00 Hepatic Function Panel LAB 12/23/23 Complete 13:00 Lipase LAB 12/23/23 Complete 13:00 Troponin I High LAB 12/23/23 Complete Sensitivity 13:00 12 Lead Ekg Tracing- EKG 12/23/23 Logged Technical 13:00 Ondansetron 4mg Inj PHA 12/23/23 Complete (Zofran 4mg Inj) 13:00 0.9%Nacl 1000ml (Ns PHA 12/23/23 Complete 1000ml) 13:00 Ketorolac PHA 12/23/23 Complete Tromethamine 15mg/Ml 13:00 Us Abdominal Ruq\Ltd US 12/23/23 Resulted 13:03 Current Medications Medications (Trade) Dose Ordered Sig/Lise Route PRN Reason Start Time Stop Time Status Last Admin Dose Admin Ketorolac Tromethamine (toRADol) 15 mg ONCE ONCE IV 12/23/23 13:00 12/23/23 13:02 DC 12/23/23 13:17 Ondansetron HCl (zoFRAN 4MG INJ) 4 mg ONCE ONCE IVP 12/23/23 13:00 12/23/23 13:02 DC 12/23/23 13:17 Sodium Chloride 1,000 ml @ 0 mls/hr ONCE ONCE IV 12/23/23 13:00 12/23/23 13:02 DC 12/23/23 13:16 Vital Signs Date Time Temp Pulse Resp B/P (MAP) Pulse Ox O2 Delivery O2 Flow Rate FiO2 12/23/23 14:15 77 18 124/61 98 Room Air* 0 21 12/23/23 12:49 98.1 82 18 159/83 98 Room Air* 0 21 12/23/23 12:27 98.6 92 18 118/73 98 Room Air 0 Medical Decision Making MDM MDM: Differential diagnosis: Vomiting, epigastric pain, gastritis Previous outside records reviewed: Old ER visits. Need for hospitalization: Patient does not meet criteria for hospitalization. Need for emergency major/minor surgery: No Patient's prior external medical records from other ER visits were reviewed by me as indicated. Prior testing and results from previous visits were reviewed. Prior tests were taken into account with medical decision making and resource utilization, independent historian/historians were used to obtain complete medical history. I independently interpreted the test that were performed, results were reviewed by me and considered findings on radiology if ordered. Medical management and examination interpretation discussions were had by me with other qualified healthcare professionals as indicated for the patient's care. DX & DISP Disposition: Discharge Departure Impression: Primary Impression: Acute epigastric pain Condition: Stable Scripts Ondansetron (Ondansetron Odt) 4 Mg Tab.rapdis 4 MG PO BID for vomiting for 5 Days, #10 TAB Prov: GURMEET CAMP MD 12/23/23 Referrals: HUMBERTO BLACKWELL (PCP) I have reviewed, & agreed with my scribe's, documentation. (Entered by Mila Farmer, acting as a scribe for Dr. Camp) I personally scribed for GURMEET CAMP MD ([email or web address]) on 12/23/23 at 13:06. Electronically submitted by Mila Farmer ([email or web address]). GURMEET CAMP MD Dec 23, 2023 13:06
[2023-12-23] MEDS: 0.9%NACL 1000ML 1,000 ML IV ONE (13:16)
[2023-12-23] MEDS: ketOROlac 15MG/ML VIAL (15MG/ML) IV ONE (13:17)
[2023-12-23] MEDS: ondanSETRON 4MG INJ IVP ONE (13:17)
[2023-12-23 13:36] LABS: BASOPHILS # (AUTO) 0.03 K/uL (0.00-0.20); BASOPHILS % (AUTO) 0.4 % (0.0-5.0); EOSINOPHILS # (AUTO) 0.17 K/uL (0.00-0.70); EOSINOPHILS % (AUTO) 2.1 % (0.0-8.0); HEMATOCRIT 43.2 % (42-54); IMMATURE GRANULOCYTE ABSOLUTE 0.04 K/uL (0-1); LYMPHOCYTES % (AUTO) 25.4 % (21.0-51.0); MEAN CORPUSCULAR HEMOGLOBIN 27.9 pg (27.0-33.0); MEAN CORPUSCULAR HGB CONC 33.8 g/dL (32.0-36.0); MEAN CORPUSCULAR VOLUME 82.6 fL (79-99); MONOCYTES # (AUTO) 0.6 K/uL (0.1-1.0); MONOCYTES % (AUTO) 7.4 % (3.0-13.0); NEUTROPHILS # (AUTO) 5.1 K/uL (1.8-7.7); NEUTROPHILS % (AUTO) 64.2 % (40.0-77.0); PLATELET COUNT (AUTO) 189 K/uL (130-400); RED BLOOD CELL COUNT(AUTO) 5.23 MIL/uL (4.50-6.20); RED CELL DISTRIBUTION WIDTH 12.2 % (11.0-15.5)
[2023-12-23 13:40] LABS: CREATININE 0.8 mg/dL (0.5-1.3); POTASSIUM 4.3 mmol/L (3.5-5.1)
[2023-12-23 13:44] LABS: ALBUMIN 3.2 g/dL (3.5-5.0); BILIRUBIN,DIRECT 0.1 mg/dL (0.0-0.3); BILIRUBIN,TOTAL 1.3 mg/dL (0.2-1.0); TOTAL PROTEIN, SERUM 6.4 g/dL (6.0-8.3)
--- NOTE | 2023-12-23 14:07 | HMCIMG ---
US ABDOMINAL RUQ\E\LTD HISTORY: gallbladder TECHNIQUE: US ABDOMINAL RUQ\E\LTD. FINDINGS: LIVER: Diffuse increased echogenicity of the liver is seen suggestive of hepatic parenchymal disease, such as hepatic steatosis. Liver measures 20 cm. GALLBLADDER: No gallstone or wall thickening is seen. CBD: Measures up to 0.6cm. PANCREAS: The visualized pancreas appears within normal limits. The pancreatic was not well seen due to overlying bowel gas. RIGHT KIDNEY: measures 11.7cm in length. No hydronephrosis or calculi. Study is degraded due to patient's large body habitus. IMPRESSION: Hepatomegaly with hepatic steatosis.
[2023-12-23 14:15] VITALS: BP 124/61; PULSE 77; RESP 18; O2SAT 98
[2023-12-23] MEDS ORDERED: ONDA-243 PO (14:19)
--- NOTE | 2023-12-23 17:55 | EKG ---
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
== END 2023-12-23 14:30 | disposition home or self-care (01) ==
LOC: EDH 12:26
DX: K76.0 Fatty (change of) liver, not elsewhere classified (principal); R10.13 Epigastric pain; R11.2 Nausea with vomiting, unspecified; R06.02 Shortness of breath; E11.9 Type 2 diabetes mellitus without complications; E66.9 Obesity, unspecified; I10 Essential (primary) hypertension; G43.909 Migraine, unspecified, not intractable, without status migrainosus; Z79.1 Long term (current) use of non-steroidal anti-inflammatories (NSAID); Z79.899 Other long term (current) drug therapy
CPT/HCPCS: 99284; 96374; 76705; 96361; 96375; 80076; 84484; 80048; 83690; 85025; 36415; 93005; J7030; J2405; J1885

== ENCOUNTER 2025-01-14 20:03 | Emergency (ER) | payer BC ==
[~2025-01-14] VITALS: Ht 177.8 cm; Wt 137.0 kg
--- NOTE | 2025-01-14 20:20 | ERN ---
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 NO FEVER NO CHILLS NO NAUSEA VOMITING. NO VISION CHANGES. ADDITIONALLY HE STATES WHEN HE WAS WORK AND HE GOT VERY ANXIOUS AND WANTED SOMETHING FOR ANXIETY SO HE CAME TO [facility]. HE STATES HIS PRIMARY CARE DOCTORS DR. OLIVERIO BLACKWELL IN HIS TREATED HIM IN THE PAST A LONG TIME AGO WITH A ANXIETY MEDICATIONS WOULD LIKE A REFILL ALTHOUGH HE DOES NOT KNOW WHAT IT IS. HE ALSO STATES HE HAS TAKEN NOTHING PRIOR TO ARRIVAL FOR PAIN BECAUSE HE WAS WORKING ALL DAY [facility] IS 0 Allergies: Coded Allergies: No Known Allergies (Unverified Allergy, Unknown, 08/28/18) Home Meds Active Scripts Ondansetron (Ondansetron Odt) 4 Mg Tab.rapdis, 4 MG PO BID for vomiting for 5 Days, #10 TAB Prov:GURMEET CAMP MD 12/23/23 Ondansetron (Ondansetron Odt) 4 Mg Tab.rapdis, 1 TAB PO Q6HPRN PRN for nausea/vomiting for 4 Days, #16 TAB 0 Refills Prov:ADI CHURCH MD 12/02/23 Cephalexin Monohydrate (Keflex) 500 Mg Cap, 500 MG PO QID for 10 Days, #40 CAP 0 Refills Prov:FABIEN WINCHESTER Sr., MD 09/19/22 Omeprazole (Omeprazole) 40 Mg Capsule.dr, 40 MG PO DAILY, #30 CAP Prov:PREM QUINTEROS MD 03/25/22 Ibuprofen (Motrin/Advil) 800 Mg Tab, 800 MG PO TID, #30 TAB Prov:PREM QUINTEROS MD 03/25/22 Past Medical History Past Medical History: Diabetes-Type II, Hypertension Additional Past Medical Hx: Obesity, migraine headaches Surgical History: None Social History: Negative, Lives with family RN Note Reviewed/Agreed w/PFSH: Yes Review of System Dictation CONSTITUTIONAL: NEGATIVE EXCEPT FOR HPI HEAD/FACE: NEGATIVE EXCEPT FOR HPI EENT: NEGATIVE EXCEPT FOR HPI RESPIRATORY: NEGATIVE EXCEPT FOR HPI GASTROINTESTINAL/ABDOMINAL: NEGATIVE EXCEPT FOR HPI GENITOURINARY: NEGATIVE EXCEPT FOR HPI MUSCULOSKELETAL: NEGATIVE EXCEPT FOR HPI INTEGUMENTARY: NEGATIVE EXCEPT FOR HPI NEUROLOGICAL/PSYCH: NEGATIVE EXCEPT FOR HPI FRONTAL HEADACHE/PRESSURE HEMATOLOGIC/LYMPHATIC: NEGATIVE EXCEPT FOR HPI ALL SYSTEMS NEGATIVE, EXCEPT NOTED ABOVE. 13 POINT REVIEW OF SYSTEMS ASSESSED AND ALL NEGATIVE EXCEPT FOR ABOVE. Initial Vital Sign VS Vital Signs Date Time Temp Pulse Resp B/P (MAP) Pulse Ox O2 Delivery O2 Flow Rate FiO2 01/14/25 20:04 98.1 79 20 149/87 97 Room Air Physical Exam Dictation VITAL SIGNS REVIEWED GENERAL APPEARANCE: ALERT, ORIENTED X 3, MILD ACUTE DISTRESS, WELL DEVELOPED, NOURISHED. MORBID OBESITY HEAD AND FACE: NON-TRAUMATIC. DIFFUSE FRONTAL SINUS TENDERNESS WITH PALPATION EYES: PERRL, PINK CONJUNCTIVAS, EYELID NO TRAUMA, ANTERIOR CHAMBER WITH ARCUS SENILIS. EARS: PINNAS INTACT AND NO SIGNS OF TRAUMA OR ERYTHEMA EAR CANALS CLEAR AND NO DISCHARGE TM NO ERYTHEMA NOSE: NO DISCHARGE, NO BLEEDING. CONGESTION OROPHARYNX: MOUTH NORMAL, TONGUE PINK, PHARYNX CLEAR,NO ERYTHEMA, TONSILS NO EXUDATES, NO ABSCESSES NOTED, MUCOUS MEMBRANE MOIST NECK: SUPPLE, NON-TENDER, NO THYROMEGALY, NO MASSES, NO JVD, NO BRUITS BREAST:DEFERRED CHEST:NO TENDERNESS, NO CREPITUS, NO PARADOXICAL MOVEMENT, NO RETRACTIONS LUNGS:CLEAR, WELL-VENTILATED, SYMMETRIC, NO RALES, NO WHEEZING, NO RHONCHI, NO STRIDOR, GOOD BREATH SOUNDS BILATERALLY HEART: REGULAR RATE, REGULAR RHYTHM, NO MURMUR, NO GALLOPS VASCULAR: NO PERIPHERAL EDEMA, ABDOMEN: SOFT, POSITIVE BOWEL SOUNDS, NONDISTENDED, NO GUARDING, NONTENDER, NO REBOUND, NO MASSES NO HEPATOMEGALY, NO SPLENOMEGALY, NO IVORY'S SIGN, NO HERNIAS. RECTAL: DEFERRED GENITAL: DEFERRED NEUROLOGICAL: NORMAL SPEECH, MOTOR FUNCTION INTACT, SENSORY FUNCTION INTACT MUSCULOSKELETAL: NECK NONTENDER, FULL RANGE OF MOTION, BACK NONTENDER, FULL RANGE OF MOTION, EXTREMITIES: NONTENDER, FULL RANGE OF MOTION SKIN: COLOR PINK, DRY, NO TURGOR, NO RASH, NO LACERATIONS, NO ABRASIONS, NO CONTUSIONS. LYMPHATIC: DEFERRED Results (Laboratory/Radiology) Labs Reviewed?: Yes ED Course ED Course Orders Procedure Category Date Status Time Ketorolac 60mg/2ml PHA 01/14/25 Logged (Toradol 60mg/2ml) 20:30 Acetaminophen 500mg PHA 01/14/25 Logged Tab (Tylenol 500mg T 20:30 Current Medications Medications (Trade) Dose Ordered Sig/Lise Route PRN Reason Start Time Stop Time Status Last Admin Dose Admin Acetaminophen (TYLenol 500MG TAB) 1,000 mg ONCE ONCE PO 01/14/25 20:30 01/14/25 20:31 UNV Ketorolac Tromethamine (toRADol 60MG/ 2ML) 60 mg ONCE ONCE IM 01/14/25 20:30 01/14/25 20:31 UNV Vital Signs Date Time Temp Pulse Resp B/P (MAP) Pulse Ox O2 Delivery O2 Flow Rate FiO2 01/14/25 20:04 98.1 79 20 149/87 97 Room Air 2017 PATIENT WAS ADVISED TO TAKE MEDICATIONS FOR HIS HEADACHE TO INCLUDE TYLENOL OR MOTRIN WHILE HE IS WORKING. HE WAS ADVISED THAT I WOULD ORDER A TORADOL SHOT WITH TYLENOL NO ANXIETY MEDICATIONS AND HE WILL BE WRITTEN OUT OF WORK TOMORROW TO FOLLOW UP WITH DR. OLIVERIO BLACKWELL Medical Decision Making MDM MEDICAL DISCHARGE MAKING BASED ON HPI AND PHYSICAL ASSESSMENT. PATIENT HAS A FRONTAL SINUS TENDERNESS DIFFUSELY NO SINUS CONGESTION OR DRAINAGE PATIENT WAS TREATED FOR A SINUS HEADACHE HE WILL BE PROVIDED IBUPROFEN AND TOLD TO SEE HIS PRIMARY CARE DOCTOR TOMORROW FOR CONTROL OF HIS ANXIETY DX & DISP Disposition: Discharge Departure Impression: Primary Impression: Sinus headache Additional Impression: Anxiety Condition: Stable Scripts Ibuprofen (Ibuprofen 800 mg Tab) 800 Mg Tab 800 MG PO Q8H PRN for fever or pain, #30 TAB 0 Refills Prov: LUCILA WELSH Faustino [employer] OPERATIONS MANAGER 01/14/25 Additional Instructions: FOLLOW-UP WITH PRIMARY CARE PROVIDER IN 1 TO 2 DAYS. TAKE MEDICATIONS DIRECTED HERE IN THE EMERGENCY ROOM. OKAY TO CONTINUE HOME MEDICATIONS UNLESS OTHERWISE DISCUSSED DURING YOUR VISIT IN THE EMERGENCY ROOM TODAY. RETURN TO YOUR NEAREST EMERGENCY ROOM IF SYMPTOMS WORSEN OR IF THERE IS NO IMPROVEMENT. CALL 911 IF YOU NEED IMMEDIATE ASSISTANCE. TAKE TYLENOL OR MOTRIN [id number] NEEDED AND IF NO CONTRAINDICATIONS ARE PRESENT. INCREASE ORAL HYDRATION. A WOUND CULTURE OR URINE CULTURE WAS ORDERED HERE IN THE EMERGENCY ROOM DEPARTMENT PLEASE FOLLOW-UP WITH PRIMARY CARE PROVIDER AND ADVISE THEM TO GET REPEAT PORTS FROM OUR FACILITY. IF YOU HAD ANY OLI WRAP/SPLINTS THAT WERE APPLIED HERE, PLEASE DO NOT REMOVE THEM UNTIL YOU SEE YOUR PRIMARY CARE OR SPECIALTY. TAKE IBUPROFEN EVERY 6 HOURS NEEDED FOR HEADACHE WITH FOOD. INCREASE YOUR WATER INTAKE. NO WORK TOMORROW AND SEE DR. OLIVERIO BLACKWELL FOR CONTROL OF YOUR ANXIETY. Referrals: HUMBERTO BLACKWELL (PCP) Time of Disposition: 20:19 I have reviewed the case, and I agree with, Diagnosis and Plan LUCILA WELSH [employer] OPERATIONS MANAGER Jan 14, 2025 20:20
[2025-01-14 20:39] VITALS: BP 149/87; PULSE 79; RESP 20; TEMP 98.1; O2SAT 97
== END 2025-01-14 20:56 | disposition home or self-care (01) ==
LOC: EDH 20:03
DX: G43.909 Migraine, unspecified, not intractable, without status migrainosus (principal); F41.9 Anxiety disorder, unspecified; E11.9 Type 2 diabetes mellitus without complications; I10 Essential (primary) hypertension; Z79.1 Long term (current) use of non-steroidal anti-inflammatories (NSAID); Z79.899 Other long term (current) drug therapy
CPT/HCPCS: 99284; 96372; J1885